=== PATIENT | female | born 1945 | race Caucasian/White ===

== ENCOUNTER 2018-08-23 20:51 | Emergency (ER) | payer OTHER ==
[~2018-08-23] VITALS: Ht 152.4 cm; Wt 78.9 kg
--- NOTE | ~2018-08-23 | EKG ---
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: [facility] [place] : 1945 Requested By: Gurvinder Otero Order Number: [id number] MD: Rudolph Coates Measurements Intervals [place] Rate: 70 P: 68 [place]: 164 QRS: 33 QRSD: 111 T: 53 QT: 396 QTc: 428 Interpretive Statements Sinus rhythm Nonspecific T abnormalities, anterior leads Baseline wander in lead(s) III,aVL No previous ECG available for comparison Electronically Signed On 08-24-2018 8:21:33 CDT by Rudolph Coates [email or web address] <ELECTRONICALLY SIGNED> By: Rudolph Coates MD 08/24/18 08 49 49 Rudolph Coates MD /JENNIFER
[~2018-08-23 20:51] MED LIST: FLEXERIL PO; GLYBURIDE 3 MG M3 M1 PO; HTN MED; MOTRIN 600 MG600 M1 OR; NORCO 5-325 TA1 EACH PO
[2018-08-23] MEDS ORDERED: LOVASTATIN 20 M20 MG (21:29)
[2018-08-23] MEDS ORDERED: LISINOPRIL20 MG PO (21:30)
[2018-08-23 21:46] LABS: ANION GAP 7 mmol/L (7-16); BUN 15 mg/dL (7-18); CALCIUM 10.1 mg/dL (8.5-10.1); CHLORIDE 99 mmol/L (98-107); CO2 27 mmol/L (21-32); GLUCOSE 377 mg/dL (74-106); POTASSIUM 4.1 mmol/L (3.5-5.1); SODIUM 133 mmol/L (136-145)
[2018-08-23 21:55] LABS: ALBUMIN 3.5 g/dL (3.4-5.0); DIRECT BILIRUBIN < 0.1 mg/dL (<0.1-0.3); SGOT 16 U/L (15-37); SGPT 28 U/L (30-65); TOTAL BILIRUBIN 0.2 mg/dL (<0.1-1.0); TOTAL PROTEIN 9.2 g/dL (6.4-8.2); TROPONIN-I <0.06 ng/mL (<0.06)
[2018-08-23 22:14] LABS: URINE BILIRUBIN NEGATIVE (Negative); URINE BLOOD NEGATIVE (Negative); URINE CLARITY CLEAR; URINE COLOR YELLOW; URINE GLUCOSE-RANDOM* 3+ (Negative); URINE KETONES NEGATIVE (Negative); URINE LEUKOCYTES-REFLEX NEGATIVE (Negative); URINE PROTEIN (DIPSTICK) NEGATIVE (Negative); URINE SPECIFIC GRAVITY 1.015 (1.005-1.035); URINE UROBILINOGEN 0.2 E.U./dl (0.2-1.0)
[2018-08-23 22:15] LABS: URINE NITRITE-REFLEX POSITIVE (Negative)
[2018-08-23 22:24] LABS: BACTERIA-REFLEX >30 Many /HPF (None Seen); CASTS None Seen /LPF (None Seen); CRYSTALS None Seen /LPF (None Seen); SQUAMOUS 0-3 Few /LPF (0-3); URINE WBC-REFLEX None Seen /HPF (0-5)
[2018-08-23 22:25] LABS: URINE RBC None Seen /HPF (0-2)
[2018-08-23] MEDS ORDERED: ZOFRAN ODT4 MG PO (22:40)
[2018-08-23] MEDS ORDERED: ANTIVERT25 MG PO (22:40)
[2018-08-23 23:11] VITALS: BP 138/60
== END 2018-08-23 23:11 | disposition home or self-care (01) ==
LOC: ER 20:51
PROVIDERS: Emergency Medicine
DX: R42 Dizziness and giddiness (principal); R11.2 Nausea with vomiting, unspecified; E11.9 Type 2 diabetes mellitus without complications; I10 Essential (primary) hypertension; E78.00 Pure hypercholesterolemia, unspecified; E78.5 Hyperlipidemia, unspecified; Z90.49 Acquired absence of other specified parts of digestive tract

== ENCOUNTER 2019-04-08 05:19 | Day surgery (SDC) | payer OTHER ==
[~2019-04-08] VITALS: Ht 152.4 cm; Wt 78.9 kg
[~2019-04-08 05:19] MED LIST changes: +AMARYL4 MG PO; +ANTIVERT25 MG PO; +ASPIR 8181 MG PO; +FISH OIL 1,001000 M2 PO; +LISINOPRIL20 MG PO; +LOVASTATIN 20 M20 MG PO; +LOVASTATIN40 MG PO; +ZOFRAN ODT4 MG PO
[2019-04-08 07:24] VITALS: BP 132/60
--- NOTE | 2019-04-08 08:15 | H ---
[facility] [place] [address] HISTORY AND PHYSICAL Name: SAHRA VILLARREAL Room #: 150-4 [facility] M.R.#: [id number] Admission: 04/08/19 ������������������ Attend Phys: Ziyad Reyes MD Discharge: ������������������ Date of : 49 Report #: [id number] THIS REPORT FOR: //name// CC: Dax Reyes DATE OF SERVICE: 04/08/2019 HISTORY OF PRESENT ILLNESS: The patient has a right tail of parotid mass that has been there for several years. She had an MRI of her head and neck because of tinnitus and hearing loss and was noted to have a 2.9 x 2.5 cm mass along the inferior aspect of the right parotid gland. 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 PAST MEDICAL HISTORY: Otherwise, significant for diabetes and high blood pressure. MEDICATIONS: Include glimepiride, lovastatin, and lisinopril. ALLERGIES: She has no known drug allergies. PHYSICAL EXAMINATION: She has a lesion in the upper right neck that is below the tail of the parotid gland and below the angle of mandible that seems to be freely mobile and firm about 2.5 cm in greatest diameter. 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 PLAN: Excision of tail of parotid mass without facial nerve dissection. ��������������������������������������������� <ELECTRONICALLY SIGNED> ���������������������������������������� By: Ziyad Reyes MD ��������������������������������������������� 04/08/19 0815 1440 1459 Ziyad Reyes MD /augustin
[2019-04-08 10:23] VITALS: BP 132/60
--- NOTE | 2019-04-08 18:04 | EKG ---
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 : 1945 Requested By: Ziyad Reyes Order Number: [id number] MD: Rudolph Coates Measurements Intervals [place] Rate: 75 P: 80 MD: 190 QRS: 43 QRSD: 95 T: 76 QT: 381 QTc: 426 Interpretive Statements Sinus rhythm Nonspecific repol abnormality, diffuse leads Compared to ECG 08/23/2018 21:50:41 Early repolarization now present T-wave abnormality no longer present Electronically Signed On 04-08-2019 18:03:51 CDT by Rudolph Coates [email or web address] ��������������������������������������������� <ELECTRONICALLY SIGNED> ���������������������������������������� By: Rudolph Coates MD ��������������������������������������������� 04/08/19 5844 0652 0652 Rudolph Coates MD /JENNIFER
--- NOTE | 2019-04-10 08:05 | O ---
[facility] [place] [address] OPERATIVE REPORT Name: VILLARREALSAHRA Room #: DEP [facility]#: [id number] Admission: 04/08/19 ������������������ Attend Phys: Ziyad Reyes MD Discharge: 04/08/19 ������������������ Date of : 49 Report #: [id number] THIS REPORT FOR: //name// CC: Dax Reyes DATE OF SERVICE: 04/08/2019 PREOPERATIVE DIAGNOSIS: Right parotid tumor. POSTOPERATIVE DIAGNOSIS: Right parotid tumor. OPERATIVE PROCEDURE: Excision of right lateral lobe parotid tumor without facial nerve dissection. ANESTHESIA: It was a general endotracheal. DESCRIPTION OF PROCEDURE: The patient was taken to the operating room and placed in a supine position. General anesthesia was induced by endotracheal intubation. Once adequate general anesthesia was obtained, the patient was connected to the nerve integrity monitoring system for nerve monitoring during the procedure. The patient was prepared and draped in a sterile manner. An incision was placed in the right upper neck 2 fingerbreadths below the mandible down through skin and subcutaneous tissue and through the platysma muscle. Subplatysmal planes were elevated superiorly and inferiorly. I dissected down through some fat and found an obvious parotid tumor. I dissected circumferentially around the tumor and was able to get underneath inferiorly and then reflected upward. I dissected it off the digastric muscle and followed it upwards. The tumor was connected to the parotid tissue superiorly at the extreme edge of the tail and this was dissected free with a cuff of normal parotid tissue. There was no indication that the facial nerve was encountered from the monitoring. The area was irrigated with normal saline. Hemostasis was verified with bipolar electrocautery. The subcutaneous tissue and platysma was closed with 4-0 Vicryl suture and the skin was closed with 5-0 Prolene suture. Blood loss for the procedure was 5 mL. The patient was then awoken and taken to the recovery room in stable condition for postoperative monitoring. ��������������������������������������������� <ELECTRONICALLY SIGNED> ���������������������������������������� By: Ziyad Reyes MD ��������������������������������������������� 04/10/19 0805 0955 1050 Ziyad Reyes MD /nt
--- NOTE | 2019-04-10 15:05 | PATH ---
[facility] [address] [place] [address] PATHOLOGY RPT PROCEDURE Name: LASHAWN VILLARREAL Room #: DEP [facility] M.R.#: [id number] ������������������ Admission: 04/08/19 ������������������ Date of : 49 Discharge: 04/08/19 Report #: [id number] Path Case #: [id number] [facility] Accession Number: [id number] . 01 Material submitted: . parotid gland - LATERAL LOBE RIGHT PAROTID TUMOR. Modifiers: lateral, right . 01 Clinician provided ICD-10: 6 . 01 Clinical history: . Parotid tumor . 02 Diagnosis: Parotid, lateral lobe right parotid tumor, partial parotidectomy: - Benign mixed tumor/pleomorphic adenoma, measuring 3.0 cm in greatest dimension. Please see comment. - Negative for malignancy. (IUV:franklin; 04/09/2019) QMS/04/09/2019 . 02 Comment: Examination shows a benign mixed tumor comprised of epithelial islands scattered throughout myxoid stroma. The tumor is surrounded by a thin capsule which appears disrupted in a few areas and exposes the myxoid stroma to the ink. For this reason the margins cannot be commented on. Please correlate with the intraoperative findings for complete resection of this tumor. . Malignant findings, necrosis, as well as transformation into a pleomorphic component are not identified within this tumor. (IUV:franklin; 04/09/2019) . 02 Electronically signed: . Christiana Gaona MD, Pathologist NPI- [id number] . 01 Gross description: . The specimen is received in formalin, labeled "Lashawn Villarreal, lateral lobe right parotid tumor", is a 9 g, 3.0 x 2.7 x 1.7 cm irregular ku-soto, rubbery tissue, covered by thin ku-white membrane. The external surface is soto-white, partially smooth and is inked black. The specimen is serially sectioned to show a ku-soto, soft cut surface with hemorrhagic foci. No discrete parotid parenchyma is identified. The specimen is entirely submitted in A1-A7. ([facility]; 04/08/2019) SHS/SHS . [address] [address] PATHOLOGY RPT PROCEDURE Name: LASHAWN VILLARREAL Room #: DEP [facility] Krupa#: [id number] ������������������ Admission: 04/08/19 ������������������ Date of : 49 Discharge: 04/08/19 Report #: [id number] Path Case #: [id number] Pathologist provided ICD-10: D11.0 . 02 CPT . 274586 Specimen Comment: A courtesy copy of this report has been sent to Specimen Comment: [phone], . Specimen Comment: Report sent to / DR TAVERAS Specimen Comment: A duplicate report has been generated due to demographic updates. Performed at: [address], [place] [id number] MD Lionel North MD Phone: [phone] Performed at: [address] [id number] MD Christiana Gaona MD Phone: [phone]
== END 2019-04-08 11:05 | disposition home or self-care (01) ==
LOC: TBA 05:19 → OR 05:19 → TBA 05:20 → OR 10:53
DX: D11.0 Benign neoplasm of parotid gland (principal); I10 Essential (primary) hypertension; E11.9 Type 2 diabetes mellitus without complications; E78.5 Hyperlipidemia, unspecified; Z90.49 Acquired absence of other specified parts of digestive tract; Z90.710 Acquired absence of both cervix and uterus; Z98.890 Other specified postprocedural states; Z79.899 Other long term (current) drug therapy; Z98.51 Tubal ligation status; Z79.82 Long term (current) use of aspirin
CPT/HCPCS: 50010; 50101; 50386; 50398; 52220; 52225; 56524; 56526; 56527; 56528; 57006; 62110; 62900; 70005